=== PATIENT | male | born 1950 | race Native Hawaiian/Other Pacific Islander ===

== ENCOUNTER 2016-10-28 20:55 | Emergency (ER) | payer OTHER ==
[2016-10-28 21:07] VITALS: O2SAT 98
[2016-10-28] MEDS ORDERED: Sodium Chloride 0.9% 1,000 ML IV ONE (21:41)
[2016-10-28] MEDS ORDERED: Sodium Chloride 0.9% 1,000 ML ONE (21:49)
[2016-10-28 21:51] LABS: BASO # 0.1 K/uL (0.0-0.2); BASO % 0.6 % (0.0-2.0); EOS # 0.1 K/uL (0.0-0.7); EOS % 0.5 % (0.0-4.0); HEMATOCRIT 39.3 % (35.0-51.0); LYMPH # 0.6 K/uL (1.0-4.3); LYMPH % 6.1 % (20.0-40.0); MEAN CELL VOLUME 70.9 fL (80.0-94.0); MEAN CORPUSCULAR HEMOGLOBIN 23.3 pg (27.0-31.0); MEAN CORPUSCULAR HGB CONC 32.8 g/dL (33.0-37.0); MEAN PLATELET VOLUME 8.4 fL (7.2-11.7); MONO # 0.4 K/uL (0.0-0.8); MONO % 3.6 % (0.0-10.0); PLATELET COUNT 230 K/uL (130-400); RED CELL DISTRIBUTION WIDTH 13.3 % (11.5-14.5); WHITE BLOOD COUNT 10.3 K/uL (4.8-10.8)
[2016-10-28 21:59] LABS: CHLORIDE 101 mmol/L (98-107); SODIUM 135 mmol/L (132-148)
[2016-10-28 22:00] LABS: POTASSIUM 3.4 mmol/L (3.6-5.2)
[2016-10-28 22:02] LABS: ALB/GLOB RATIO 1.3 (1.0-2.1); ALKALINE PHOSPHATASE 60 U/L (38-126); ALT/SGPT 50 U/L (21-72); AST/SGOT 26 U/L (17-59); BILIRUBIN,TOTAL 0.8 mg/dL (0.2-1.3); BLOOD UREA NITROGEN 14 mg/dL (9-20); CARBON DIOXIDE 21 mmol/L (22-30); GFR AFRICAN-AMERICAN > 60; GLUCOSE,RANDOM 138 mg/dL (75-110); TOTAL PROTEIN 7.2 g/dL (6.3-8.3)
[2016-10-28 22:13] LABS: NEUTROPHIL 86 % (50-75); TOTAL CELLS COUNTED 100
--- NOTE | 2016-10-28 23:44 | C.PDOC ---
History Of Present Illness 66 y/o male c/o typical vertigo episodes for the last 4 years, worse today. Patient took his usual Bonine, but symptoms got worse. Reports vomiting once, which is not typical. Denies headache, fever, chills, or any other complaints. Symptoms improved since this evening. takes Bonine occasionally for mild vertigo, never used Meclizine normal colonoscopy 2 yrs ago with only few benign polyps, no h/o anemia, nor DM Time Seen by Provider: 10/28/16 22:03 Chief Complaint (Nursing): Dizziness/Lightheaded History Per: Patient History/Exam Limitations: no limitations Onset/Duration Of Symptoms: Hrs, Intermittent Episodes Current Symptoms Are (Timing): Still Present Seizure Or Post-ictal Symptoms: None Possible Causative Factor(s): Vertigo Fall Associated With With Symptoms: No Severity: Mild Recent travel outside of the [place]: No Additional History Per: Patient Past Medical History Reviewed: Historical Data, Nursing Documentation, Vital Signs Vital Signs: Last Vital Signs Temp 97.9 F 10/28/16 23:54 Pulse 80 10/28/16 23:54 Resp 14 10/28/16 23:54 BP 133/87 10/28/16 23:54 Pulse Ox 98 10/29/16 00:07 - Medical History PMH: Asthma, HTN, Hypercholesterolemia Family History: States: Unknown Family Hx - Social History Hx Tobacco Use: No Hx Alcohol Use: No Hx Substance Use: No - Immunization History Hx Tetanus Toxoid Vaccination: No Hx Influenza Vaccination: No Hx Pneumococcal Vaccination: No Review Of Systems Except As Marked, All Systems Reviewed And Found Negative. Constitutional: Negative for: Fever, Chills Neurological: Positive for: Incoordination (Vertigo). Negative for: Headache Physical Exam - Physical Exam Appears: Non-toxic, No Acute Distress Skin: Warm, Dry Head: Atraumatic, Normacephalic Ear(s): Bilateral: Normal Nose: Normal Oral Mucosa: Moist Throat: Normal, No Erythema, No Exudate Cardiovascular: Rhythm Regular Respiratory: Normal Breath Sounds, No Rales, No Rhonchi, No Wheezing Gastrointestinal/Abdominal: Soft, No Tenderness Neurological/Psych: Oriented x3, Normal Speech, Normal Cognition, Other (Mild vertigo. No changes with head movement.) ED Course And Treatment - Laboratory Results Result Diagrams: 10/28/16 21:48 10/28/16 21:48 Lab Interpretation: Abnormal ([facility] microcytic anemia) ECG: Interpreted By Me ECG Rhythm: Sinus Rhythm ECG Interpretation: Normal Rate From EC O2 Sat by Pulse Oximetry: 98 (RA) Pulse Ox Interpretation: Normal Reevaluation Time: 23:45 Reassessment Condition: Improved Medical Decision Making Medical Decision Making: Impression: 66 y/o male c/o typical vertigo episodes for the last 4 years, worse today. Plans: * Toradol * Antivert * Zofran * IV fluids exacerbation of baseline vertigo for > [address] indicated. incidental findings of [place] Fe Def Anemia but normal colonoscopy 2 yrs ago f/u recommended glu 138, no h/o DM diet/exercise for 6 months educated and f/u with PMD Disposition Doctor Will See Patient In The: Office Counseled Patient/Family Regarding: Studies Performed, Diagnosis - Disposition Referrals: [facility] [Outside] [facility] [Outside] Niall Tovar MD [Staff Provider] - Disposition: HOME/ ROUTINE Disposition Time: 23:48 Condition: GOOD Additional Instructions: Vertigo: continue Bonine as usual, as needed Trial Meclizine/Antivert with Motrin 600 mg (as given in ED) for more severe vertigo Zofran 4 mg ODT as needed for nausea Microcytic Anemia: Consider repeat upper and lower endoscopy/colonoscopy follow-up with your PMD for further eval as needed- [facility] Diabetes: glucose 138 NPO Consider diet and exercise changes for 6 months and re-eval for diabetes with your PMD you may follow-up with Dr. Cezar Tovar for a new local PMD as needed. ([facility]) Prescriptions: Meclizine [Meclizine*] 25 mg PO Q6 PRN #30 tab PRN Reason: vertigo Ondansetron ODT [Zofran ODT] 4 mg PO Q6H PRN #6 odt PRN Reason: Nausea/Vomiting Instructions: Vertigo (ED) Forms: [facility] (Persian) - Clinical Impression Clinical Impression: Vertigo, Hyperglycemia, unspecified, Microcytic anemia - Scribe Statement The provider has reviewed the documentation as recorded by the Scribe Chirag mann All medical record entries made by the Scribe were at my direction and personally dictated by me. I have reviewed the chart and agree that the record accurately reflects my personal performance of the history, physical exam, medical decision making, and the department course for this patient. I have also personally directed, reviewed, and agree with the discharge instructions and disposition.
[2016-10-28 23:55] VITALS: BP 133/87; PULSE 80; RESP 14; TEMP 97.9
--- NOTE | 2016-10-31 17:40 | CARD ---
APPROVED REPORT EKG Measurement Heart [id number] CT [id number] <Conclusion> Normal sinus rhythm Possible Anterior infarct, age undetermined Abnormal ECG
== END 2016-10-29 00:11 | disposition home or self-care (01) ==
LOC: C.ER 20:55
DX: D50.9 Iron deficiency anemia, unspecified (principal); R73.9 Hyperglycemia, unspecified; R42 Dizziness and giddiness
CPT/HCPCS: 80053; 84484; 85025; 93005; 96361; 96374; 96375; 99285; J1885; J2405; J7040